=== PATIENT | male | born 1965 | race Caucasian/White ===

== ENCOUNTER 2017-06-09 01:24 | Inpatient (IN) | payer OTHER ==
[~2017-06-09] VITALS: Ht 185.4 cm; Wt 140.5 kg
[~2017-06-09 01:24] MED LIST: ALFU10TA2 PO; CLON0.5T PO; DICY1TAB26 PO; LORTA5 PO; PAXI20TA26 PO; PRAV80 PO; PROBCAP4 PO; PROS5TAB2 PO; PROT40TA PO; SM F10002 PO; TAB-TAB PO; TRIBTAB9 PO
[2017-06-09 01:31] VITALS: BP 120/69; PULSE 83; RESP 17; TEMP 98.2; O2SAT 97
[2017-06-09] MEDS ORDERED: CLON0.5T PO (01:42)
[2017-06-09] MEDS ORDERED: BP MED PO (01:42)
[2017-06-09] MEDS ORDERED: SACC1CAP3 PO (01:42)
[2017-06-09] MEDS ORDERED: PRAV80TA2 PO (01:42)
[2017-06-09] MEDS ORDERED: PROS5TAB PO (01:42)
--- NOTE | 2017-06-09 02:09 | PD ---
HPI Chief Complaint: Abdominal Pain Time Seen by Provider: 01:29 Travel History International Travel<30 days: No Contact w/Intl Traveler<30days: No Traveled to known affect area: No History of Present Illness HPI The patient is a 51 year old male who presents to the [facility] emergency department with a history of abdominal pain that began this morning. He has been in bed for 1 and 1/2 days reportedly related to an upper respiratory infection with cough and congestion. He reports that as he lives at home alone he has not been eating or drinking due to being in bed. He reports that he has a history of bowel obstruction and previously has developed bowel obstructions when he has been dehydrated. He has had dry heaving. He denies any diarrhea. His last BM was 3 days ago. He normally moves his bowels daily. He denies having any blood in his stool or black or tarry stools. The patient reports having history of an appendectomy and a partial bowel resection related to complications of his appendectomy. He reports that he developed a bowel obstruction with adhesion lysis in the past. The patient also reports having history of difficulty urinating and enlarged prostate that is followed by his urologist. On review of systems otherwise, the patient denies having any known fevers, neck pain, chest pain, shortness of breath, or neurologic symptoms. Jennifer-Urologist [facility] Past Medical History Narrative Medical The patient's past medical history is significant for BPH, UTI, HTN, hyperlipidemia, bowel obstructions, anxiety or depression, sleep apnea, obesity , acid reflux PCP: Dr. Meryl Wright. Arthritis: Yes (NECK, L SHOULDER ) Anxiety: Yes Depression: Yes Heart Rhythm Problems: No Cancer: No Cardiovascular Problems: Yes (HNT) High Cholesterol: Yes Chest Pain: No Congestive Heart Failure: No Diabetes: No Diminished Hearing: No Endocrine: No Gastrointestinal Disorders: Yes (pain and reflux with partial blockage with adhesions possible) Genitourinary: No Hepatitis: No Hiatal Hernia: No Hypertension: Yes Immune Disorder: No Musculoskeletal: Yes Neurologic: Yes Psychiatric: Yes Reproductive: No Respiratory: Yes Sleep Apnea: Yes (BIPAP) Thyroid Disease: No Past Surgical History Narrative Surgical The patient's past surgical history is significant for appendectomy with a partial bowel resection, lysis of adhesions, knee surgery, ankle sx. Abdominal Surgery: Yes (bowel resection, appendectomy, laproscopic removal of abd scar tissue) AICD: No Arteriovenous Shunt: No Cardiac Surgery: No Ear Surgery: No Endocrine Surgery: No Eye Surgery: No Genitourinary Surgery: No Insulin Pump: No Joint Replacement: No Oral Surgery: No Pacemaker: No Thoracic Surgery: No Other Surgery: Yes Social History Alcohol Use: No Tobacco Use: No Substance Use: No Allergies-Medications (Allergen,Severity, Reaction): Coded Allergies: sulfamethoxazole (Unverified Allergy, Severe, Rash, 06/09/17) trimethoprim (Unverified Allergy, Severe, Rash, 06/09/17) Reported Meds & Prescriptions Reported Meds & Active Scripts Active [place] 5-325 mg (Hydrocodone-Acetaminophen 5-325 mg) 1 Tab 1 Tab PO Q6H PRN Bentyl (Dicyclomine HCl) 20 Mg Tab 20 Mg PO TID 14 Days Reported [Bp Med] PO DAILY Clonazepam 0.5 Mg Tab 0.5 Mg PO BID Proscar (Finasteride) 5 Mg Tab 5 Mg PO DAILY Do not crush. Probiotic (Saccharomyces Boulardii) 250 Mg Cap 250 Mg PO BID Pravastatin 80 Mg Tab 80 Mg PO DAILY Clonazepam 0.5 Mg Tab 0.5 Mg PO BID PRN Protonix (Pantoprazole Sodium) 40 Mg Tab 40 Mg PO DAILY Pravastatin Sodium (Pravastatin Sod) 80 Mg Tab 1 Tab PO DAILY Proscar (Finasteride) 5 Mg Tab 5 Mg PO DAILY Probiotic Acidophilus (Acidophilus) Cap 1 Tab PO BID Sm Flax Seed Oil (Flaxseed) 1,000 Mg Cap 1,200 Mg PO DAILY Multivitamin (Multivitamins) 1 Tab Tab 1 Tab PO DAILY Alfuzosin Hcl Er (Alfuzosin HCl) 10 Mg Tab 10 Mg PO DAILY Tribenzor (Olmesartan Medoxomil-Amlodipin) 1 Tab Tab 40 Mg PO DAILY Paxil (Paroxetine HCl) 20 Mg Tab 20 Mg PO DAILY Review of Systems Except as stated in HPI: all other systems reviewed are Neg General / Constitutional: No: Fever Eyes: No: Visual changes HENT: No: Headaches Cardiovascular: No: Chest Pain or Discomfort Respiratory: No: Shortness of Breath Gastrointestinal: Positive: Nausea, Vomiting, Abdominal Pain, Constipation, Changes in Bowel Habits, Indigestion (reportedly cant afford his prescription for pantoprazole), No: Diarrhea, Hematemesis, Hematochezia, Loss of Appetite Genitourinary: No: Dysuria Musculoskeletal: No: Pain Skin: No Rash Neurologic: No: Weakness Psychiatric: No: Depression Endocrine: No: Polydipsia Hematologic/Lymphatic: No: Easy Bruising Physical Exam Narrative General: The patient is a well-developed well-nourished male, writhing around on the bed , intermittently retching, holding his abdomen. Head and Neck exam: Head is normocephalic atraumatic. Eyes: EOMI, pupils are equal round and reactive to light. Nose: Midline septum with pink mucous membranes Mouth: Dentition unremarkable. Moist mucus membranes. Posterior oropharynx is not erythematous. No tonsillar hypertrophy. Uvula midline. Airway patent. Neck: No palpable lymphadenopathy. No nuchal rigidity. No thyromegaly. Cardiovascular: Regular rate and rhythm without murmurs, gallops, or rubs. Lungs: Clear to auscultation bilaterally. No wheezes, rhonchi, or rales. Abdomen: Soft, with tenderness on palpation along the area just above the umbilicus, no other tenderness on palpation of the other quadrants of the abdomen, decreased bowel sounds are audible. No guarding, rebound, or rigidity. No tenderness on palpation of McBurney's point. Negative Rosa's sign. Extremities: No clubbing, cyanosis, or edema. 2+ pulses in all 4 extremities. No calf tenderness on palpation. Back: No spinous process tenderness to palpation. No costovertebral angle tenderness to palpation. Neurologic Exam: Grossly nonfocal. Skin Exam: No rash noted. Intact skin that is warm and dry. Data Data Last Documented VS Vital Signs Date Time Temp Pulse Resp B/P (MAP) Pulse Ox O2 Delivery O2 Flow Rate FiO2 06/09/17 01:31 98.2 83 17 120/69 (86) 97 Orders Orders Electrocardiogram (06/09/17 01:54) Complete Blood Count With Diff (06/09/17 01:54) Comprehensive Metabolic Panel (06/09/17 01:54) Creatine Kinase (Cpk) (06/09/17 01:54) Ckmb (Isoenzyme) Profile (06/09/17 01:54) Troponin I (06/09/17 01:54) B-Type Natriuretic Peptide (06/09/17 01:54) Prothrombin Time / Inr (Pt) (06/09/17 01:54) Act Partial Throm Time (Ptt) (06/09/17 01:54) C-Reactive Protein (Crp) (06/09/17 01:54) Lipase (06/09/17 01:54) Urinalysis - C+S If Indicated (06/09/17 01:54) Magnesium (Mg) (06/09/17 01:54) Chest, Single Ap (06/09/17 01:54) Ct Abd/Pel W Iv Contrast(Rout) (06/09/17 01:54) Iv Access Insert/Monitor (06/09/17 01:54) Ecg Monitoring (06/09/17 01:54) Oximetry (06/09/17 01:54) Sodium Chlor 0.9% 1000 Ml Inj (Ns 1000 M (06/09/17 02:15) Hydromorphone Pf Inj (Dilaudid Pf Inj) (06/09/17 02:15) Ondansetron Inj (Zofran Inj) (06/09/17 02:15) Iohexol 350 Inj (Omnipaque 350 Inj) (06/09/17 02:54) Admit Order (Ed Use Only) (06/09/17 03:44) Labs Laboratory Tests Test 06/09/17 02:00 06/09/17 03:45 White Blood Count 11.0 TH/MM3 Red Blood Count 5.44 MIL/MM3 Hemoglobin 16.9 GM/DL Hematocrit 48.5 % Mean Corpuscular Volume 89.2 FL Mean Corpuscular Hemoglobin 31.2 PG Mean Corpuscular Hemoglobin Concent 34.9 % Red Cell Distribution Width 14.2 % Platelet Count 388 TH/MM3 Mean Platelet Volume 7.2 FL Neutrophils (%) (Auto) 75.7 % Lymphocytes (%) (Auto) 16.0 % Monocytes (%) (Auto) 6.6 % Eosinophils (%) (Auto) 1.4 % Basophils (%) (Auto) 0.3 % Neutrophils # (Auto) 8.3 TH/MM3 Lymphocytes # (Auto) 1.8 TH/MM3 Monocytes # (Auto) 0.7 TH/MM3 Eosinophils # (Auto) 0.2 TH/MM3 Basophils # (Auto) 0.0 TH/MM3 CBC Comment DIFF FINAL Differential Comment Prothrombin Time 10.0 SEC Prothromb Time International Ratio 1.0 RATIO Activated Partial Thromboplast Time 25.9 SEC Blood Urea Nitrogen 14 MG/DL Creatinine 1.03 MG/DL Random Glucose 104 MG/DL Total Protein 9.3 GM/DL Albumin 4.3 GM/DL Calcium Level 9.6 MG/DL Magnesium Level 2.1 MG/DL Alkaline Phosphatase 93 U/L Aspartate Amino Transf (AST/SGOT) 28 U/L Alanine Aminotransferase (ALT/SGPT) 38 U/L Total Bilirubin 0.6 MG/DL Sodium Level 135 MEQ/L Potassium Level 3.6 MEQ/L Chloride Level 96 MEQ/L Carbon Dioxide Level 30.0 MEQ/L Anion Gap 9 MEQ/L Estimat Glomerular Filtration Rate 76 ML/MIN Total Creatine Kinase 89 U/L Troponin I LESS THAN 0.02 NG/ML C-Reactive Protein 1.01 MG/DL B-Type Natriuretic Peptide LESS THAN 2 PG/ML Lipase 89 U/L Urine Color YELLOW Urine Turbidity CLEAR Urine pH 7.5 Urine Specific [place] GREATER THAN 1.050 Urine Protein 30 mg/dL Urine Glucose (UA) NEG mg/dL Urine Ketones NEG mg/dL Urine Occult Blood NEG Urine Nitrite NEG Urine Bilirubin NEG Urine Urobilinogen LESS THAN 2.0 MG/DL Urine Leukocyte Esterase NEG Urine RBC 3 /hpf Urine WBC 1 /hpf Urine Squamous Epithelial Cells <1 /hpf Urine Mucus FEW /lpf Microscopic Urinalysis Comment CULT NOT INDICATED MDM Medical Decision Making Medical Screen Exam Complete: Yes Emergency Medical Condition: Yes Medical Record Reviewed: Yes Interpretation(s) Last Impressions Chest X-Ray 06/09/17153 Signed Impressions: Service Date/Time: Friday, June 09, 2017 02:26 - CONCLUSION: Left basilar density likely related to atelectasis or scarring. Pavel Estevez MD Abdomen/Pelvis CT 06/09/17153 Signed Impressions: Service Date/Time: Friday, June 09, 2017 02:56 - CONCLUSION: Abnormal dilated small bowel present with decompressed small bowel seen distally and the findings are concerning for a small bowel obstruction. Pavel Estevez MD Differential Diagnosis Recurrent bowel obstruction, versus prostatitis, versus colitis, versus diverticulitis Narrative Course During the course of the patient's emergency department visit, the patient's history, examination, and differential diagnosis were reviewed with the patient. The patient was placed on a program services assistant with oximetry and frequent blood pressure monitoring. The patient had IV access obtained and blood work sent for analysis. A CT scan of the abdomen and pelvis was ordered. An EKG was done on arrival. The patient's EKG reveals sinus rhythm heart rate of 82, QRS duration is 103 ms, QTC 433 ms. Incomplete right bundle branch block is noted. No acute ST segment elevation. The patient was initially provided normal saline IV fluids, hydromorphone 1 mg IV, Zofran 4 mg IV The patient's laboratory studies were reviewed and remarkable for White count of 11, hemoglobin 16.9, platelets 388 with 75.7 neutrophils. CMP is remarkable for sodium of 135, chloride 96, GFR 76, cardiac enzymes within normal limits, C- reactive protein 1.01, BNP is less than 2, lipase 89. PT 10, PTT 25.9, urinalysis shows concentrated urine 30 protein otherwise unremarkable. The patient's chest x-ray showed no acute abnormality. A CT scan of the abdomen and pelvis that revealed evidence of recurrent small bowel obstruction. I discussed the patient's findings with him and also discussed placing an NG tube. At this time the patient reports that he would like to avoid having an NG tube placed again. The patient's results were discussed with the patient, including the plan of care. I explained that further testing and/ or monitoring is indicated based on the patient's history, examination, and/ or laboratory findings. Therefore, I recommended admission for additional evaluation. The patient expressed understanding and was agreeable with this plan. The patient was admitted to the hospital in stable condition and sent to a bed under the care of the [facility] service. Physician Communication Physician Communication The patient's case including history, pertinent physical examination findings, and laboratory studies were discussed with Dr. Ruiz. It was agreed that the patient would be admitted to the [facility] ([place], [place]) service. Diagnosis Primary Impression: Small bowel obstruction Admitting Information Admitting Physician Requests: Admit Lori James MD Jun 09, 2017 02:09
[2017-06-09 02:13] LABS: AUTOMATED NEUTROPHIL # 8.3 TH/MM3 (1.8-7.7); BASOPHIL % 0.3 % (0.0-2.0); EOSINOPHIL # 0.2 TH/MM3 (0-0.4); EOSINOPHIL % 1.4 % (0.0-4.0); HEMATOCRIT 48.5 % (39.0-51.0); HEMOGLOBIN 16.9 GM/DL (13.0-17.0); LYMPHOCYTE # 1.8 TH/MM3 (1.0-4.8); MEAN CELL VOLUME 89.2 FL (80.0-100.0); MEAN CORPUSCULAR HEMOGLOBIN 31.2 PG (27.0-34.0); MEAN CORPUSCULAR HGB CONC 34.9 % (32.0-36.0); MEAN PLATELET VOLUME 7.2 FL (7.0-11.0); MONO % 6.6 % (0.0-8.0); MONOCYTE # 0.7 TH/MM3 (0-0.9); NEUT % 75.7 % (16.0-70.0); PLATELET COUNT 388 TH/MM3 (150-450); RED BLOOD COUNT 5.44 MIL/MM3 (4.50-5.90); RED CELL DISTRIBUTION WIDTH 14.2 % (11.6-17.2)
[2017-06-09] MEDS ORDERED: ONDANSETRON HCL 4 MG/2 ML VIAL IV PUSH ONE (02:15)
[2017-06-09] MEDS ORDERED: SODIUM CHLOR 0.9% 1000 ML INJ 1,000 ML IV ONE (02:15)
[2017-06-09] MEDS ORDERED: HYDROmorphone HCL PF 2 MG/ML VIAL IV PUSH ONE (02:15)
[2017-06-09 02:27] LABS: ALBUMIN 4.3 GM/DL (3.4-5.0); AST (GOT) 28 U/L (15-37); BLOOD UREA NITROGEN 14 MG/DL (7-18); CALCIUM 9.6 MG/DL (8.5-10.1); CHLORIDE 96 MEQ/L (98-107); CREATININE 1.03 MG/DL (0.60-1.30); GLOMERULAR FILTRATION RATE 76 ML/MIN (>89); GLUCOSE,RANDOM 104 MG/DL (74-106); MAGNESIUM 2.1 MG/DL (1.5-2.5); SODIUM (NA) 135 MEQ/L (136-145)
[2017-06-09 02:30] LABS: ALKALINE PHOSPHATASE 93 U/L (45-117); ALT (GPT) 38 U/L (12-78); C-REACTIVE PROTEIN 1.01 MG/DL (0.00-0.30); TOTAL BILIRUBIN ADULT 0.6 MG/DL (0.2-1.0); TOTAL PROTEIN 9.3 GM/DL (6.4-8.2); TROPONIN I LESS THAN 0.02 NG/ML (0.02-0.05)
--- NOTE | 2017-06-09 02:31 | RADRPT ---
EXAM DATE/TIME: 06/09/2017 02:26 [facility] COMPARISON: CHEST PA & LAT, January 17, 2016, 8:29. INDICATIONS : Chest pains. Lower chest. MEDICAL HISTORY : None. SURGICAL HISTORY : None. ENCOUNTER: Initial ACUITY: 1 day PAIN SCORE: 0/10 LOCATION: Bilateral chest FINDINGS: Cardiomegaly. Slight elevation of left hemidiaphragm with density at the left lateral costophrenic an gle likely related to scarring or atelectasis. The lungs are otherwise clear. Degenerative changes of the spine are noted. CONCLUSION: Left basilar density likely related to atelectasis or scarring. Pavel Estevez MD on June 09, 2017 at 2:28 Board Certified Radiologist. This report was verified electronically.
[2017-06-09] MEDS ORDERED: IOHEXOL 350 MG/ML 10 ML VIAL (for RAD DIAG) IVCONTRAST ONE (02:54)
--- NOTE | 2017-06-09 03:17 | RADRPT ---
EXAM DATE/TIME: 06/09/2017 02:56 [facility] COMPARISON: CT ABDOMEN & PELVIS W CONTRAST, January 17, 2016, 8:33. INDICATIONS : Abdomen pain and distention. IV CONTRAST: 100 cc Omnipaque 350 (iohexol) IV ORAL CONTRAST: No oral contrast ingested. RADIATION DOSE: 33.72 CTDIvol (mGy) ; Patient body habitus MEDICAL HISTORY : Hypertension. Obstruction. SURGICAL HISTORY : Appendectomy. Bowel resection. ENCOUNTER: Initial ACUITY: 1 day PAIN SCALE: 6/10 LOCATION: Bilateral abdomen TECHNIQUE: Volumetric scanning of the abdomen and pelvis was performed. Using automated exposure control and ad justment of the mA and/or kV according to patient size, radiation dose was kept as low as reasonably achievable to obtain optimal diagnostic quality images. DICOM format image data is available electro nically for review and comparison. FINDINGS: There is mild hepatic steatosis. Gallbladder spleen, pancreas, adrenals, kidneys are unremarkable. Ur inary bladder and prostate unremarkable. Large bowel unremarkable. The patient is status post appende ctomy. There numerous dilated air and fluid-filled loops of small bowel present up to 3.6 cm. Distal small bowel loops are decompressed, and there is a transition point in the left lower quadrant on axi al image 74. The findings are concerning for small bowel obstruction. No free fluid or free air. Dege nerative changes of the spine are seen. Lung bases are clear. CONCLUSION: Abnormal dilated small bowel present with decompressed small bowel seen distally and the findings are concerning for a small bowel obstruction. Pavel Estevez MD on June 09, 2017 at 3:10 Board Certified Radiologist. This report was verified electronically.
[2017-06-09] MEDS ORDERED: MORPHINE SULFATE 2 MG/ML INJ IV PUSH PRN (03:45)
[2017-06-09] MEDS ORDERED: NALOXONE HCL 0.4 MG/ML AMP IV PUSH PRN (03:45)
[2017-06-09] MEDS ORDERED: SODIUM CHLORIDE 0.9% FLUSH 10 ML FLUSH IV FLUSH PRN (03:45)
[2017-06-09] MEDS: SODIUM CHLOR 0.9% 1000 ML INJ 1,000 ML IV SCH ×4 (04:01→22:34)
[2017-06-09 04:03] LABS: BILIRUBIN, URINE NEG (NEG); BLOOD, URINE NEG (NEG); GLUCOSE,URINE NEG (NEG); KETONE, URINE NEG (NEG); MUCUS URINE FEW /lpf (OCC); NITRITE,URINE NEG (NEG); PH, URINE 7.5 (5.0-8.5); SQUAMOUS EPITHELIAL CELL URINE <1 /hpf (0-5); URINE COLOR YELLOW (YELLW/STRAW); URINE LEUKOCYTE ESTERASE NEG (NEG)
--- NOTE | 2017-06-09 04:59 | HHI.HP ---
[facility] Meryl [facility]ord[facility] D.O. Admission Diagnosis Small bowel obstruction Diagnoses: Chief Complaint: nausea, vomiting, abdominal pain Travel History International Travel<30 Days: No Contact w/Intl Traveler <30 Da: No Traveled to Known Affected Are: No History of Present Illness Written by CICI Fox acting as scribe for [Sara] on 06/09/17 at 04: 48. 51 y/o male with a history of SBO, sleep apnea, bph, and hld presented to the ED with complaints of abdominal pain, nausea and vomiting. He states he has been feeling sick the past 2 days with abdominal pain, nausea and vomiting. His last BM was 3 days ago, today he took lactulose with no relief. He is refusing an NGT at this time. He denies any chest pain, sob, fever or chills. Review of Systems Except as stated in HPI: all other systems reviewed are Neg Past Family Social History Past Medical History Multiple Small bowel obstruction HTN Past Surgical History Bowel resection secondary to a ruptured appendix Lysis of adhesions Reported Medications Reported Meds & Active Scripts Active [place] 5-325 mg (Hydrocodone-Acetaminophen 5-325 mg) 1 Tab 1 Tab PO Q6H PRN Bentyl (Dicyclomine HCl) 20 Mg Tab 20 Mg PO TID 14 Days Reported [Bp Med] PO DAILY Clonazepam 0.5 Mg Tab 0.5 Mg PO BID Proscar (Finasteride) 5 Mg Tab 5 Mg PO DAILY Do not crush. Probiotic (Saccharomyces Boulardii) 250 Mg Cap 250 Mg PO BID Pravastatin 80 Mg Tab 80 Mg PO DAILY Clonazepam 0.5 Mg Tab 0.5 Mg PO BID PRN Protonix (Pantoprazole Sodium) 40 Mg Tab 40 Mg PO DAILY Pravastatin Sodium (Pravastatin Sod) 80 Mg Tab 1 Tab PO DAILY Proscar (Finasteride) 5 Mg Tab 5 Mg PO DAILY Probiotic Acidophilus (Acidophilus) Cap 1 Tab PO BID Sm Flax Seed Oil (Flaxseed) 1,000 Mg Cap 1,200 Mg PO DAILY Multivitamin (Multivitamins) 1 Tab Tab 1 Tab PO DAILY Alfuzosin Hcl Er (Alfuzosin HCl) 10 Mg Tab 10 Mg PO DAILY Tribenzor (Olmesartan Medoxomil-Amlodipin) 1 Tab Tab 40 Mg PO DAILY Paxil (Paroxetine HCl) 20 Mg Tab 20 Mg PO DAILY Allergies: Coded Allergies: sulfamethoxazole (Unverified Allergy, Severe, Rash, 06/09/17) trimethoprim (Unverified Allergy, Severe, Rash, 06/09/17) Active Ordered Medications Current Medications Medications (Trade) Dose Ordered Sig/Pepito Route Start Time Stop Time Status Last Admin Sodium Chloride 1,000 ml @ 100 mls/hr Q10H IV 06/09/17 03:45 06/09/17 04:01 (NS Flush) 2 ml UNSCH PRN IV FLUSH 06/09/17 03:45 (NS Flush) 2 ml BID IV FLUSH 06/09/17 09:00 (Zofran Inj) 4 mg Q6H PRN IVP 06/09/17 03:45 (Narcan Inj) 0.4 mg UNSCH PRN IV PUSH 06/09/17 03:45 (Morphine Inj) 2 mg Q3H PRN IV PUSH 06/09/17 03:45 Family History Dad: Rheumatic fever, [place] Social History Tobacco use: Denies Alcohol use: Denies Illicit drug use: Denies Physical Exam Vital Signs Vital Signs Date Time Temp Pulse Resp B/P (MAP) Pulse Ox O2 Delivery O2 Flow Rate FiO2 06/09/17 01:31 98.2 83 17 120/69 (86) 97 Physical Exam GENERAL: This is a well-nourished, obese patient, in no apparent distress. SKIN: No rashes, ecchymoses or lesions. Cool and dry. HEAD: Atraumatic. Normocephalic. EYES: Pupils equal round and reactive. Extraocular motions intact. No scleral icterus. No injection or drainage. ENT: Nose without bleeding, purulent drainage or septal hematoma. Airway patent. NECK: Trachea midline. No JVD or lymphadenopathy. CARDIOVASCULAR: Regular rate and rhythm without murmurs, gallops, or rubs. RESPIRATORY: Clear to auscultation. Breath sounds equal bilaterally. No wheezes , rales, or rhonchi. GASTROINTESTINAL: Abdomen soft, tender, nondistended. No hepato-splenomegaly, or palpable masses. No guarding. MUSCULOSKELETAL: Extremities without clubbing, cyanosis, or edema. No joint tenderness, effusion, or edema noted. No calf tenderness. NEUROLOGICAL: Awake and alert. Motor and sensory grossly within normal limits. Normal speech. Laboratory Laboratory Tests Test 06/09/17 02:00 06/09/17 03:45 White Blood Count 11.0 Red Blood Count 5.44 Hemoglobin 16.9 Hematocrit 48.5 Mean Corpuscular Volume 89.2 Mean Corpuscular Hemoglobin 31.2 Mean Corpuscular Hemoglobin Concent 34.9 Red Cell Distribution Width 14.2 Platelet Count 388 Mean Platelet Volume 7.2 Neutrophils (%) (Auto) 75.7 Lymphocytes (%) (Auto) 16.0 Monocytes (%) (Auto) 6.6 Eosinophils (%) (Auto) 1.4 Basophils (%) (Auto) 0.3 Neutrophils # (Auto) 8.3 Lymphocytes # (Auto) 1.8 Monocytes # (Auto) 0.7 Eosinophils # (Auto) 0.2 Basophils # (Auto) 0.0 CBC Comment DIFF FINAL Differential Comment Prothrombin Time 10.0 Prothromb Time International Ratio 1.0 Activated Partial Thromboplast Time 25.9 Blood Urea Nitrogen 14 Creatinine 1.03 Random Glucose 104 Total Protein 9.3 Albumin 4.3 Calcium Level 9.6 Magnesium Level 2.1 Alkaline Phosphatase 93 Aspartate Amino Transf (AST/SGOT) 28 Alanine Aminotransferase (ALT/SGPT) 38 Total Bilirubin 0.6 Sodium Level 135 Potassium Level 3.6 Chloride Level 96 Carbon Dioxide Level 30.0 Anion Gap 9 Estimat Glomerular Filtration Rate 76 Total Creatine Kinase 89 Troponin I LESS THAN 0.02 C-Reactive Protein 1.01 B-Type Natriuretic Peptide LESS THAN 2 Lipase 89 Urine Color YELLOW Urine Turbidity CLEAR Urine pH 7.5 Urine Specific [place] GREATER THAN 1.050 Urine Protein 30 Urine Glucose (UA) NEG Urine Ketones NEG Urine Occult Blood NEG Urine Nitrite NEG Urine Bilirubin NEG Urine Urobilinogen LESS THAN 2.0 Urine Leukocyte Esterase NEG Urine RBC 3 Urine WBC 1 Urine Squamous Epithelial Cells <1 Urine Mucus FEW Microscopic Urinalysis Comment CULT NOT INDICATED Result Diagram: 06/09/17 02006/09/17 020 Imaging Last Impressions Chest X-Ray 06/09/17 0154 Signed Impressions: Service Date/Time: Friday, June 09, 2017 02:26 - CONCLUSION: Left basilar density likely related to atelectasis or scarring. Pavel Estevez MD Abdomen/Pelvis CT 06/09/17 0154 Signed Impressions: Service Date/Time: Friday, June 09, 2017 02:56 - CONCLUSION: Abnormal dilated small bowel present with decompressed small bowel seen distally and the findings are concerning for a small bowel obstruction. MD Vitor Lara VTE Risk Assessment Caprini VTE Risk Assessment: No/Low Risk (score <= 1) Caprini Risk Assessment Model Point Value = 1 Point Value = 2 Point Value = 3 Point Value = 5 Age 41-60 Minor surgery BMI > 25 kg/m2 Swollen legs Varicose veins or History of unexplained or recurrent spontaneous Oral contraceptives or hormone replacement Sepsis (< 1 month) Serious lung disease, including pneumonia (< 1 month) Abnormal pulmonary function Acute myocardial infarction Congestive heart failure (< 1 month) History of inflammatory bowel disease Medical patient at bed rest Age 61-74 Arthroscopic surgery Major open surgery (> 45 min) Laparoscopic surgery (> 45 min) Malignancy Confined to bed (> 72 hours) Immobilizing plaster cast Central venous access Age >= 75 History of VTE Family history of VTE Factor V Leiden Prothrombin [id number] Lupus anticoagulant Anticardiolipin antibodies Elevated serum homocysteine Heparin-induced thrombocytopenia Other congenital or acquired thrombophilia Stroke (< 1 month) Elective arthroplasty Hip, pelvis, or leg fracture Acute spinal cord injury (< 1 month) Prophylaxis Regimen Total Risk Factor Score Risk Level Prophylaxis Regimen 0-1 Low Early ambulation 2 Moderate Order ONE of the following: *Sequential Compression Device (SCD) *Heparin 5000 units SQ BID 3-4 Higher Order ONE of the following medications: *Heparin 5000 units SQ TID *Enoxaparin/Lovenox 40 mg SQ daily (WT < 150 kg, CrCl > 30 mL/min) *Enoxaparin/Lovenox 30 mg SQ daily (WT < 150 kg, CrCl > 10-29 mL/min) *Enoxaparin/Lovenox 30 mg SQ BID (WT < 150 kg, CrCl > 30 mL/min) AND/OR *Sequential Compression Device (SCD) 5 or more Highest Order ONE of the following medications: *Heparin 5000 units SQ TID (Preferred with Epidurals) *Enoxaparin/Lovenox 40 mg SQ daily (WT < 150 kg, CrCl > 30 mL/min) *Enoxaparin/Lovenox 30 mg SQ daily (WT < 150 kg, CrCl > 10-29 mL/min) *Enoxaparin/Lovenox 30 mg SQ BID (WT < 150 kg, CrCl > 30 mL/min) AND *Sequential Compression Device (SCD) Assessment and Plan Problem List: (1) Small bowel obstruction ICD Code: K56.609 - Unspecified intestinal obstruction, unspecified as to partial versus complete obstruction Assessment and Plan 51 y/o male with a history of SBO, sleep apnea, bph, and hld presented to the ED with complaints of abdominal pain, nausea and vomiting. Small bowel obstruction abdominal CT reviewed and shows an abnormal dilated small bowel present with decompressed small bowel seen distally. -IVF -NGT if patient continues to Vomit -Antiemetics as needed -NPO -Consult general surgery for recommendations -Dilaudid IV for pain management Chronic conditions bph, hld, anxiety: resume home medications when no longer npo DVT prophylaxis: SCDs Discussed Condition With Patient, RN and ED physician Physician Certification 2 Midnight Certification Type: Admission for Inpatient Services Order for Inpatient Services The services are ordered in accordance with Medicare regulations or non- Medicare payer requirements, as applicable. In the case of services not specified as inpatient-only, they are appropriately provided as inpatient services in accordance with the 2-midnight benchmark. Estimated LOS (days): 2 days is the estimated time the patient will need to remain in the hospital, assuming treatment plan goals are met and no additional complications. Post-Hospital Plan: Home Micaela Weber Jun 09, 2017 04:59
[2017-06-09] MEDS: HYDROmorphone HCL PF 1 MG/ML VIAL IV PUSH PRN ×2 (05:22→09:23)
[2017-06-09] MEDS: ONDANSETRON HCL 4 MG/2 ML VIAL IVP PRN ×3 (06:53→20:47)
[2017-06-09 08:22] VITALS: BP 136/69; PULSE 68; RESP 22; TEMP 98.2; O2SAT 97
[2017-06-09 08:23] VITALS: O2SAT 98
[2017-06-09] MEDS ORDERED: NON-FORMULARY DRUG (Saccharomyces Boulardii (Probiotic) 250 MG) PO SCH (09:00)
[2017-06-09] MEDS: PRAVASTATIN SOD 80 MG TAB PO SCH (09:00)
[2017-06-09] MEDS: clonazePAM 0.5 MG TAB PO SCH ×2 (09:00→20:47)
[2017-06-09] MEDS: FINASTERIDE 5 MG TAB PO SCH (09:00)
[2017-06-09] MEDS: SODIUM CHLORIDE 0.9% FLUSH 10 ML FLUSH IV FLUSH SCH ×2 (09:00→20:54)
--- NOTE | 2017-06-09 10:23 | PD.CONS ---
cc: Johnny Moncada MD [facility] Service General Surgery Consult Requested By Micaela BOLANOS Reason for Consult Small bowel obstruction Primary Care Physician Meryl Giordano D.O. History of Present Illness This is a 51-year-old male with a past medical history of a obstructive sleep apnea, BPH, dyslipidemia and hypertension. The patient reports he had about 2 days of generalized abdominal pain that increased yesterday. He does report some nausea but no vomiting at home. On arrival to the Emergency Department he did have some emesis. He reports his last bowel movement was 3 days ago but is passing gas. A CT abdomen and pelvis was obtained which shows a abnormal dilated small bowel that is concerning for small bowel obstruction. His labs are essentially unremarkable at this time. A General Surgery consultation has been requested. Review of Systems Constitutional: COMPLAINS OF: Fatigue, Change in appetite, DENIES: Chills Endocrine: DENIES: Polydipsia, Polyuria, Polyphagia Eyes: DENIES: Diplopia, Eye inflammation Ears, nose, mouth, throat: DENIES: Hearing loss Respiratory: DENIES: Apneas, Cough Cardiovascular: DENIES: Chest pain, Dyspnea on Exertion Gastrointestinal: COMPLAINS OF: Abdominal pain, Nausea, Vomiting Genitourinary: DENIES: Urgency Musculoskeletal: DENIES: Joint pain Integumentary: DENIES: Abnormal pigmentation Hematologic/lymphatic: DENIES: Bruising Immunologic/allergic: DENIES: Eczema Neurologic: DENIES: Abnormal gait, Headache Psychiatric: DENIES: Confusion, Mood changes, Depression Past Family Social History Past Medical History Obstructive sleep apnea on BiPAP BPH Dyslipidemia Hypertension Anxiety/PTSD Past Surgical History Open appendectomy secondary to ruptured appendicitis [place] [address] Laguerre Diagnostic laparoscopy & Lysis of adhesions by Dr. Moncada in 2014 Reported Medications Bentyl Alfuzosin Pravastatin Tribenzor [place] Clonazepam Paxil Protonix Probiotic Multivitamin Proscar Proscar Allergies: Coded Allergies: sulfamethoxazole (Unverified Allergy, Severe, Rash, 06/09/17) trimethoprim (Unverified Allergy, Severe, Rash, 06/09/17) Active Ordered Medications Current Medications Medications (Trade) Dose Ordered Sig/Pepito Route Start Time Stop Time Status Last Admin Sodium Chloride 1,000 ml @ 100 mls/hr Q10H IV 06/09/17 03:45 06/09/17 04:01 (NS Flush) 2 ml UNSCH PRN IV FLUSH 06/09/17 03:45 (NS Flush) 2 ml BID IV FLUSH 06/09/17 09:00 (Zofran Inj) 4 mg Q6H PRN IVP 06/09/17 03:45 06/09/17 06:53 (Narcan Inj) 0.4 mg UNSCH PRN IV PUSH 06/09/17 03:45 (Dilaudid Pf Inj) 1 mg Q4H PRN IV PUSH 06/09/17 05:00 06/09/17 09:23 (KlonoPIN) 0.5 mg BID PO 06/09/17 09:00 (Proscar) 5 mg DAILY PO 06/09/17 09:00 (Pravachol) 80 mg DAILY PO 06/09/17 09:00 Family History Noncontributory Social History Denies tobacco use Denies EtOH use Denies illicit drug use Lives with ; currently unemployed. Physical Exam Vital Signs Vital Signs Date Time Temp Pulse Resp B/P (MAP) Pulse Ox O2 Delivery O2 Flow Rate FiO2 06/09/17 09:17 16 06/09/17 08:23 98 Room Air 06/09/17 08:22 98.2 68 22 136/69 (91) 97 Room Air 06/09/17 01:31 98.2 83 17 120/69 (86) 97 Physical Exam GENERAL: A 51-year-old male resting in bed in moderate acute distress from pain. SKIN: Warm and dry. HEAD: Atraumatic. Normocephalic. EYES: Pupils equal and round. No scleral icterus. No injection or drainage. ENT: No nasal bleeding or discharge. Mucous membranes pink and moist. NECK: Trachea midline. CARDIOVASCULAR: Regular rate and rhythm. RESPIRATORY: No accessory muscle use. Clear to auscultation. Breath sounds equal bilaterally. GASTROINTESTINAL: Abdomen distended; tender throughout to palpation. Hypoactive bowel sounds. RLQ incision---well healed. Obese abdomen. MUSCULOSKELETAL: Extremities without clubbing, cyanosis, or edema. No obvious deformities. NEUROLOGICAL: Awake and alert. No obvious cranial nerve deficits. Motor grossly within normal limits. Five out of 5 muscle strength in the arms and legs. Normal speech. PSYCHIATRIC: Appropriate mood and affect; insight and judgment normal. Laboratory Laboratory Tests Test 06/09/17 02:00 06/09/17 03:45 White Blood Count 11.0 Red Blood Count 5.44 Hemoglobin 16.9 Hematocrit 48.5 Mean Corpuscular Volume 89.2 Mean Corpuscular Hemoglobin 31.2 Mean Corpuscular Hemoglobin Concent 34.9 Red Cell Distribution Width 14.2 Platelet Count 388 Mean Platelet Volume 7.2 Neutrophils (%) (Auto) 75.7 Lymphocytes (%) (Auto) 16.0 Monocytes (%) (Auto) 6.6 Eosinophils (%) (Auto) 1.4 Basophils (%) (Auto) 0.3 Neutrophils # (Auto) 8.3 Lymphocytes # (Auto) 1.8 Monocytes # (Auto) 0.7 Eosinophils # (Auto) 0.2 Basophils # (Auto) 0.0 CBC Comment DIFF FINAL Differential Comment Prothrombin Time 10.0 Prothromb Time International Ratio 1.0 Activated Partial Thromboplast Time 25.9 Blood Urea Nitrogen 14 Creatinine 1.03 Random Glucose 104 Total Protein 9.3 Albumin 4.3 Calcium Level 9.6 Magnesium Level 2.1 Alkaline Phosphatase 93 Aspartate Amino Transf (AST/SGOT) 28 Alanine Aminotransferase (ALT/SGPT) 38 Total Bilirubin 0.6 Sodium Level 135 Potassium Level 3.6 Chloride Level 96 Carbon Dioxide Level 30.0 Anion Gap 9 Estimat Glomerular Filtration Rate 76 Total Creatine Kinase 89 Troponin I LESS THAN 0.02 C-Reactive Protein 1.01 B-Type Natriuretic Peptide LESS THAN 2 Lipase 89 Urine Color YELLOW Urine Turbidity CLEAR Urine pH 7.5 Urine Specific [place] GREATER THAN 1.050 Urine Protein 30 Urine Glucose (UA) NEG Urine Ketones NEG Urine Occult Blood NEG Urine Nitrite NEG Urine Bilirubin NEG Urine Urobilinogen LESS THAN 2.0 Urine Leukocyte Esterase NEG Urine RBC 3 Urine WBC 1 Urine Squamous Epithelial Cells <1 Urine Mucus FEW Microscopic Urinalysis Comment CULT NOT INDICATED Result Diagram: 06/09/1719906/09/17 020 Imaging Last 48 hours Impressions Chest X-Ray 06/09/17 0154 Signed Impressions: Service Date/Time: Friday, June 09, 2017 02:26 - CONCLUSION: Left basilar density likely related to atelectasis or scarring. Pavel Estevez MD Abdomen/Pelvis CT 06/09/17 0154 Signed Impressions: Service Date/Time: Friday, June 09, 2017 02:56 - CONCLUSION: Abnormal dilated small bowel present with decompressed small bowel seen distally and the findings are concerning for a small bowel obstruction. Pavel Estevez MD Assessment and Plan Assessment and Plan 51 year old male with abdominal pain; nausea; vomiting; recurrent SBO -Recommend NGT to LIWS ---patient agrees -NPO -IV hydration -Pain control -Zofran PRN -KUB in AM -Thank you for this consult; We will continue to follow Discussed Condition With Dr. Coral BOLANOS Mr. and Mrs. Angel Don Attending Statement Please see my progress note from same date. The exam, history, and the medical decision-making described in the above note were completed with the assistance of the mid-level provider. I reviewed and agree with the findings presented. I attest that I had a [id number] encounter with the patient on the same day, and personally performed and documented my assessment and findings in the medical record. Alessandra Potts Jun 09, 2017 10:23 Johnny Moncada MD Jun 10, 2017 11:23
[2017-06-09 11:00] VITALS: PULSE 95
[2017-06-09] MEDS: HYDROmorphone HCL PF 2 MG/ML VIAL IV PRN ×3 (14:29→22:31)
--- NOTE | 2017-06-09 15:53 | HHI.PR ---
Subjective Subjective Notes feels better. Passed some gas, liquid. Had recent URI, got dehydrated, then abdominal pain, distention. Objective Vitals/I&O Vital Signs Date Time Temp Pulse Resp B/P (MAP) Pulse Ox O2 Delivery O2 Flow Rate FiO2 06/09/17 11:00 95 06/09/17 09:17 16 06/09/17 08:23 98 Room Air 06/09/17 08:22 98.2 Labs Laboratory Tests Test 06/09/17 02:00 06/09/17 03:45 White Blood Count 11.0 Red Blood Count 5.44 Hemoglobin 16.9 Hematocrit 48.5 Mean Corpuscular Volume 89.2 Mean Corpuscular Hemoglobin 31.2 Mean Corpuscular Hemoglobin Concent 34.9 Red Cell Distribution Width 14.2 Platelet Count 388 Mean Platelet Volume 7.2 Neutrophils (%) (Auto) 75.7 Lymphocytes (%) (Auto) 16.0 Monocytes (%) (Auto) 6.6 Eosinophils (%) (Auto) 1.4 Basophils (%) (Auto) 0.3 Neutrophils # (Auto) 8.3 Lymphocytes # (Auto) 1.8 Monocytes # (Auto) 0.7 Eosinophils # (Auto) 0.2 Basophils # (Auto) 0.0 CBC Comment DIFF FINAL Differential Comment Prothrombin Time 10.0 Prothromb Time International Ratio 1.0 Activated Partial Thromboplast Time 25.9 Blood Urea Nitrogen 14 Creatinine 1.03 Random Glucose 104 Total Protein 9.3 Albumin 4.3 Calcium Level 9.6 Magnesium Level 2.1 Alkaline Phosphatase 93 Aspartate Amino Transf (AST/SGOT) 28 Alanine Aminotransferase (ALT/SGPT) 38 Total Bilirubin 0.6 Sodium Level 135 Potassium Level 3.6 Chloride Level 96 Carbon Dioxide Level 30.0 Anion Gap 9 Estimat Glomerular Filtration Rate 76 Total Creatine Kinase 89 Troponin I LESS THAN 0.02 C-Reactive Protein 1.01 B-Type Natriuretic Peptide LESS THAN 2 Lipase 89 Urine Color YELLOW Urine Turbidity CLEAR Urine pH 7.5 Urine Specific [place] GREATER THAN 1.050 Urine Protein 30 Urine Glucose (UA) NEG Urine Ketones NEG Urine Occult Blood NEG Urine Nitrite NEG Urine Bilirubin NEG Urine Urobilinogen LESS THAN 2.0 Urine Leukocyte Esterase NEG Urine RBC 3 Urine WBC 1 Urine Squamous Epithelial Cells <1 Urine Mucus FEW Microscopic Urinalysis Comment CULT NOT INDICATED Radiology Last 48 hours Impressions Chest X-Ray 06/09/17153 Signed Impressions: Service Date/Time: Friday, June 09, 2017 02:26 - CONCLUSION: Left basilar density likely related to atelectasis or scarring. Pavel Estevez MD Abdomen/Pelvis CT 06/09/17153 Signed Impressions: Service Date/Time: Friday, June 09, 2017 02:56 - CONCLUSION: Abnormal dilated small bowel present with decompressed small bowel seen distally and the findings are concerning for a small bowel obstruction. Pavel Estevez MD Abdomen: Other (mildly distended, protuberant. Non tender. No hernias. Scars well healed. Few Bss.) Extremities: No edema, Perfused A/P Assessment and Plan Recent URI, dehydration, likely ileus. Doubt SBO. aruna Soriano. D/W patient and Dr Galvin. Johnny Moncada MD Jun 09, 2017 15:53
[2017-06-09 16:00] VITALS: BP 125/63; PULSE 86; RESP 18; TEMP 97.4; O2SAT 96
--- NOTE | 2017-06-09 16:00 | HHI.PR ---
Objective Vitals Vital Signs Date Time Temp Pulse Resp B/P (MAP) Pulse Ox O2 Delivery O2 Flow Rate FiO2 06/09/17 11:00 95 06/09/17 09:17 16 06/09/17 08:23 98 Room Air 06/09/17 08:22 98.2 68 22 136/69 (91) 97 Room Air 06/09/17 01:31 98.2 83 17 120/69 (86) 97 I/O 06/08/17 06/08/17 06/08/17 06/09/17 06/09/17 06/09/17 06:59 14:59 22:59 06:59 14:59 22:59 Intake Total 1000 ml 0 ml Balance 1000 ml 0 ml Intake IV Total 1000 ml 0 ml Result Diagram: 06/09/17 0200 06/09/17 0200 A/P Problem List: (1) Small bowel obstruction ICD Code: K56.609 - Unspecified intestinal obstruction, unspecified as to partial versus complete obstruction Assessment and Plan Mr. Ortiz was seen by me twice today, he presented early this morning with a recurrence of a small bowel obstruction (see H&P) - Exam in the ER around 8am revealed no bowel sounds - Exam in his room around 2pm showed hypoactive bowel sounds - Clear liquids added by surgery, will follow progress of bowel awakening, looking good so far Freddie Galvin MD Jun 09, 2017 15:59
[2017-06-09 20:00] VITALS: BP 130/66; PULSE 67; RESP 18; TEMP 98.5; O2SAT 94
--- NOTE | 2017-06-09 21:20 | EKG ---
Date Performed: 06/09/2017 Time Performed: 02:17:43 PTAGE: 51 years EKG: Sinus rhythm INCOMPLETE RIGHT BUNDLE BRANCH BLOCK NONSPECIFIC ST & T-WAVE ABNORMALITY BORDERLINE ECG PREVIOUS TRACING : 01/17/2016 07.13 Since the prior tracing, there has been no significant henao DOCTOR: Alberto Brown Interpretating Date/Time 06/09/2017 21:18:29
[2017-06-10] VITALS (8 sets, daily range): BP systolic 124–155; BP diastolic 67–79; PULSE 71–118; RESP 18–20; TEMP 96.2–99.6; O2SAT 92–97
[2017-06-10] MEDS: HYDROmorphone HCL PF 2 MG/ML VIAL IV PRN ×5 (03:29→19:46)
[2017-06-10] MEDS: FINASTERIDE 5 MG TAB PO SCH (08:08)
[2017-06-10] MEDS: SODIUM CHLORIDE 0.9% FLUSH 10 ML FLUSH IV FLUSH SCH ×2 (08:08→19:43)
[2017-06-10] MEDS: PRAVASTATIN SOD 80 MG TAB PO SCH (08:08)
[2017-06-10] MEDS: clonazePAM 0.5 MG TAB PO SCH ×2 (08:08→19:42)
[2017-06-10 08:11] LABS: AUTOMATED NEUTROPHIL # 3.7 TH/MM3 (1.8-7.7); BASOPHIL % 0.2 % (0.0-2.0); EOSINOPHIL % 0.2 % (0.0-4.0); HEMATOCRIT 40.8 % (39.0-51.0); LYMPH % 12.8 % (9.0-44.0); LYMPHOCYTE # 0.6 TH/MM3 (1.0-4.8); MEAN CELL VOLUME 90.6 FL (80.0-100.0); MEAN CORPUSCULAR HGB CONC 34.2 % (32.0-36.0); MEAN PLATELET VOLUME 7.1 FL (7.0-11.0); MONO % 12.8 % (0.0-8.0); MONOCYTE # 0.6 TH/MM3 (0-0.9); PLATELET COUNT 304 TH/MM3 (150-450); RED CELL DISTRIBUTION WIDTH 13.8 % (11.6-17.2)
[2017-06-10 08:45] LABS: BICARBONATE 29.2 MEQ/L (21.0-32.0); CREATININE 0.71 MG/DL (0.60-1.30)
--- NOTE | 2017-06-10 11:35 | HHI.PR ---
Subjective Subjective Notes Passed a relatively large liquid bowel movement last night. Has some mild nausea. He denies any emesis. He does not feel like he is quite ready for regular food. He would like to try full liquids. Objective Vitals/I&O Vital Signs Date Time Temp Pulse Resp B/P (MAP) Pulse Ox O2 Delivery O2 Flow Rate FiO2 06/10/17 08:00 96.2 87 18 126/74 (91) 94 06/09/17 08:23 Room Air Labs Laboratory Tests Test 06/10/17 07:18 White Blood Count 5.0 Red Blood Count 4.50 Hemoglobin 14.0 Hematocrit 40.8 Mean Corpuscular Volume 90.6 Mean Corpuscular Hemoglobin 31.0 Mean Corpuscular Hemoglobin Concent 34.2 Red Cell Distribution Width 13.8 Platelet Count 304 Mean Platelet Volume 7.1 Neutrophils (%) (Auto) 74.0 Lymphocytes (%) (Auto) 12.8 Monocytes (%) (Auto) 12.8 Eosinophils (%) (Auto) 0.2 Basophils (%) (Auto) 0.2 Neutrophils # (Auto) 3.7 Lymphocytes # (Auto) 0.6 Monocytes # (Auto) 0.6 Eosinophils # (Auto) 0.0 Basophils # (Auto) 0.0 CBC Comment DIFF FINAL Differential Comment Blood Urea Nitrogen 14 Creatinine 0.71 Random Glucose 108 Calcium Level 8.0 Sodium Level 136 Potassium Level 3.7 Chloride Level 100 Carbon Dioxide Level 29.2 Anion Gap 7 Estimat Glomerular Filtration Rate 116 Radiology Last 48 hours Impressions Chest X-Ray 06/09/17153 Signed Impressions: Service Date/Time: Friday, June 09, 2017 02:26 - CONCLUSION: Left basilar density likely related to atelectasis or scarring. Pavel Estevez MD Abdomen/Pelvis CT 06/09/17153 Signed Impressions: Service Date/Time: Friday, June 09, 2017 02:56 - CONCLUSION: Abnormal dilated small bowel present with decompressed small bowel seen distally and the findings are concerning for a small bowel obstruction. Pavel Estevez MD Abdomen: Other (Mildly distended nontender. Few bowel sounds.) Extremities: No edema (Mildly distended nontender to palpation few bowel sounds ) A/P Assessment and Plan Recent URI, dehydration, likely ileus. Doubt SBO. We will advance to full liquid diet. I impressed upon the patient the importance of walking in the halls. Will start Urecholine to try and stimulate gastric emptying. Potentially home in the next 24-[address] Galvin. Johnny Moncada MD Jun 10, 2017 11:35
[2017-06-10] MEDS: BETHANECHOL CHL 25 MG TAB PO SCH ×2 (12:00→17:19)
--- NOTE | 2017-06-10 14:55 | HHI.PR ---
Subjective Remarks 51-year-old male admitted for small bowel obstruction continues to improve with tolerance of liquid diet today. His mother brought in some psychiatric meds today that are not on her formulary. He is requesting permission to take those medications on his own. Objective Vitals Vital Signs Date Time Temp Pulse Resp B/P (MAP) Pulse Ox O2 Delivery O2 Flow Rate FiO2 06/10/17 12:00 96.9 80 18 155/79 (104) 94 06/10/17 08:00 96.2 87 18 126/74 (91) 94 06/10/17 04:00 99.6 105 20 136/72 (93) 92 06/10/17 01:47 71 06/10/17 00:00 98.4 118 20 124/75 (91) 93 06/09/17 20:00 98.5 67 18 130/66 (87) 94 06/09/17 16:00 97.4 86 18 125/63 (83) 96 I/O 06/09/17 06/09/17 06/09/17 06/10/17 06/10/17 06/10/17 07:00 15:00 23:00 07:00 15:00 23:00 Intake Total 1000 ml 0 ml 1540 ml Output Total 600 ml Balance 1000 ml 0 ml 1540 ml -600 ml Intake Oral 240 ml IV Total 1000 ml 0 ml 1300 ml Output Urine Total 600 ml # Voids 3 Result Diagram: 06/10/1718 06/10/1718 Objective Remarks GENERAL: obese, pleasant affect SKIN: Warm and dry. HEAD: Normocephalic. EYES: No scleral icterus. No injection or drainage. NECK: Supple, trachea midline. No JVD or lymphadenopathy. CARDIOVASCULAR: Regular rate and rhythm without murmurs, gallops, or rubs. RESPIRATORY: Breath sounds equal bilaterally. No accessory muscle use. GASTROINTESTINAL: Abdomen bloated, less tender to palpation today, bowel sounds approximately 50% active EXTREMITIES: No cyanosis, or edema. NEUROLOGICAL: Awake, alert, and oriented x 3. Non-focal. A/P Problem List: (1) Small bowel obstruction ICD Code: K56.609 - Unspecified intestinal obstruction, unspecified as to partial versus complete obstruction Assessment and Plan Small Bowel Obstruction Slowly improving tolerated liquid diet Continue to advance diet slowly Encouraged ambulation h/o Bipolar disorder / Anxiety (?) May take non-formulary psychiatric meds brought in by his mother h/o BPH Continue finasteride DVT Prophylaxis SCDs due to surgical risk Discharge planning We will follow diet tolerance, expect discharge to be in 24-48 hours Freddie Galvin MD Jun 10, 2017 14:55
[2017-06-10] MEDS: SODIUM CHLOR 0.9% 1000 ML INJ 1,000 ML IV SCH (19:45)
[2017-06-11] VITALS (10 sets, daily range): BP systolic 130–153; BP diastolic 72–87; PULSE 72–111; RESP 16–18; TEMP 96.1–98.1; O2SAT 92–96
[2017-06-11] MEDS: HYDROmorphone HCL PF 2 MG/ML VIAL IV PRN ×3 (00:01→08:05)
[2017-06-11] MEDS: SODIUM CHLOR 0.9% 1000 ML INJ 1,000 ML IV SCH ×2 (00:03→10:10)
[2017-06-11] MEDS: BETHANECHOL CHL 25 MG TAB PO SCH ×4 (04:27→17:58)
[2017-06-11] MEDS: SODIUM CHLORIDE 0.9% FLUSH 10 ML FLUSH IV FLUSH SCH ×2 (08:06→19:29)
[2017-06-11] MEDS: clonazePAM 0.5 MG TAB PO SCH ×2 (08:07→19:28)
[2017-06-11] MEDS: FINASTERIDE 5 MG TAB PO SCH (08:07)
[2017-06-11] MEDS: PRAVASTATIN SOD 80 MG TAB PO SCH (08:07)
[2017-06-11] MEDS ORDERED: ACETAMINOPHEN/HYDROcodone 325 MG/5 MG TAB PO PRN (11:00)
--- NOTE | 2017-06-11 11:47 | HHI.PR ---
cc: Carlos Conteh MD Subjective Subjective Notes Resting in bed Tolerating full liquids Objective Vitals/I&O Vital Signs Date Time Temp Pulse Resp B/P (MAP) Pulse Ox O2 Delivery O2 Flow Rate FiO2 06/11/17 08:35 18 06/11/17 08:10 96 Nasal Cannula 3.00 06/11/17 08:00 98.1 81 143/74 (97) Radiology Last 48 hours Impressions Chest X-Ray 06/09/17153 Signed Impressions: Service Date/Time: Friday, June 09, 2017 02:26 - CONCLUSION: Left basilar density likely related to atelectasis or scarring. Pavel Estevez MD Abdomen/Pelvis CT 06/09/17153 Signed Impressions: Service Date/Time: Friday, June 09, 2017 02:56 - CONCLUSION: Abnormal dilated small bowel present with decompressed small bowel seen distally and the findings are concerning for a small bowel obstruction. Pavel Estevez MD Cardiovascular: Regular Lungs: Clear Abdomen: Non-distended, Non-tender, Other (obese abdomen soft ) Extremities: No edema A/P Assessment and Plan 51 year old male with abdominal pain; recent URI; likely ileus -Regular diet -DC IVF -+BM -Added PO pain pills -If tolerates regular diet okay to DC -No office follow up needed Alessandra Potts/[employer] ARNP Jun 11, 2017 11:47
[2017-06-11] MEDS: ACETAMINOPHEN/HYDROcodone 325 MG/5 MG TAB PO PRN ×3 (12:18→21:09)
--- NOTE | 2017-06-11 16:27 | HHI.PR ---
Subjective Remarks Patient presented 2 days ago with small bowel obstruction. He has recovered with time. Today he still claims that he has pain and has been reluctant to tolerate full p.o. Objective Vitals Vital Signs Date Time Temp Pulse Resp B/P (MAP) Pulse Ox O2 Delivery O2 Flow Rate FiO2 06/11/17 13:18 18 06/11/17 12:00 92 06/11/17 12:00 96.9 78 16 134/72 (92) 94 06/11/17 08:35 18 06/11/17 08:10 96 Nasal Cannula 3.00 06/11/17 08:00 88 06/11/17 08:00 98.1 81 16 143/74 (97) 96 06/11/17 04:26 97.8 84 18 151/75 (100) 92 06/11/17 04:16 83 06/11/17 00:21 78 06/11/17 00:00 96.5 91 18 153/87 (109) 93 06/10/17 20:18 81 06/10/17 20:00 97.3 81 18 130/67 (88) 97 06/10/17 19:39 Nasal Cannula 3.00 I/O 06/10/17 06/10/17 06/10/17 06/11/17 06/11/17 06/11/17 06:59 14:59 22:59 06:59 14:59 22:59 Intake Total 2240 ml 704 ml Output Total 600 ml 800 ml Balance -600 ml 2240 ml -96 ml Intake Oral 840 ml IV Total 1400 ml 704 ml Output Urine Total 600 ml 800 ml # Voids 5 # Bowel Movements 1 Result Diagram: 06/10/17 0718 06/10/17 0718 Objective Remarks GENERAL: obese, pleasant affect SKIN: Warm and dry. HEAD: Normocephalic. EYES: No scleral icterus. No injection or drainage. NECK: Supple, trachea midline. No JVD or lymphadenopathy. CARDIOVASCULAR: Regular rate and rhythm without murmurs, gallops, or rubs. RESPIRATORY: Breath sounds equal bilaterally. No accessory muscle use. GASTROINTESTINAL: Abdomen bloated, less tender to palpation today, bowel sounds approximately 80% active EXTREMITIES: No cyanosis, or edema. NEUROLOGICAL: Awake, alert, and oriented x 3. Non-focal. A/P Problem List: (1) Small bowel obstruction ICD Code: K56.609 - Unspecified intestinal obstruction, unspecified as to partial versus complete obstruction Assessment and Plan Small Bowel Obstruction Slowly improving tolerated soft foods Continue to advance diet slowly as tolerated Patient was reluctant to ambulate today h/o Bipolar disorder / Anxiety (?) May take non-formulary psychiatric meds brought in by his mother h/o BPH Continue finasteride DVT Prophylaxis SCDs due to surgical risk Discharge planning Patient will likely discharge tomorrow, he does not feel quite ready today. Freddie Galvin MD Jun 11, 2017 16:27
[2017-06-12] VITALS: BP 132/78; PULSE 108; RESP 18; TEMP 98.9; O2SAT 93
[2017-06-12] MEDS: BETHANECHOL CHL 25 MG TAB PO SCH ×3 (00:31→12:00)
[2017-06-12] MEDS: ACETAMINOPHEN/HYDROcodone 325 MG/5 MG TAB PO PRN ×3 (00:32→08:18)
[2017-06-12 04:00] VITALS: BP 133/72; PULSE 98; RESP 18; TEMP 98.6; O2SAT 94
[2017-06-12 08:00] VITALS: BP 117/73; PULSE 93; RESP 18; TEMP 98; O2SAT 93
[2017-06-12] MEDS: clonazePAM 0.5 MG TAB PO SCH (08:17)
[2017-06-12] MEDS: PRAVASTATIN SOD 80 MG TAB PO SCH (08:18)
[2017-06-12] MEDS: FINASTERIDE 5 MG TAB PO SCH (08:18)
[2017-06-12] MEDS: SODIUM CHLORIDE 0.9% FLUSH 10 ML FLUSH IV FLUSH SCH (08:19)
--- NOTE | 2017-06-12 10:33 | HHI.PR ---
Subjective Subjective Notes doing well, tolerating diet, pain better, +flatus and bm Objective Vitals/I&O Vital Signs Date Time Temp Pulse Resp B/P (MAP) Pulse Ox O2 Delivery O2 Flow Rate FiO2 06/12/17 08:00 98.0 93 18 117/73 (88) 93 06/11/17 08:10 Nasal Cannula 3.00 Radiology Last 48 hours Impressions Chest X-Ray 06/09/17153 Signed Impressions: Service Date/Time: Friday, June 09, 2017 02:26 - CONCLUSION: Left basilar density likely related to atelectasis or scarring. Pavel Estevez MD Abdomen/Pelvis CT 06/09/17153 Signed Impressions: Service Date/Time: Friday, June 09, 2017 02:56 - CONCLUSION: Abnormal dilated small bowel present with decompressed small bowel seen distally and the findings are concerning for a small bowel obstruction. Pavel Estevez MD Cardiovascular: Regular Lungs: Clear Abdomen: Other (soft mild ttp, nd) A/P Assessment and Plan SBO vs ileus resolved + bms PLAN reg diet d/c planning today ok from surgery stand point Mo Ellis MD Jun 12, 2017 10:33
--- NOTE | 2017-06-12 10:55 | HHI.PR ---
Subjective Remarks Patient seen and examined. AFVSS. No acute events overnight. Patient reports he is doing well. Just had a large, nonbloody BM. Denies abdominal pain, nausea, or vomiting. Tolerating PO and ambulating. Excited to go home. Objective Vitals Vital Signs Date Time Temp Pulse Resp B/P (MAP) Pulse Ox O2 Delivery O2 Flow Rate FiO2 06/12/17 08:00 98.0 93 18 117/73 (88) 93 06/12/17 04:00 98.6 98 18 133/72 (92) 94 06/12/17 00:00 98.9 108 18 132/78 (96) 93 06/11/17 23:45 93 06/11/17 20:00 96.1 111 18 130/72 (91) 95 06/11/17 19:59 72 06/11/17 17:59 17 06/11/17 16:00 96.5 81 17 133/76 (95) 93 06/11/17 12:00 92 06/11/17 12:00 96.9 78 16 134/72 (92) 94 I/O 06/11/17 06/11/17 06/11/17 06/12/17 06/12/17 06/12/17 07:00 15:00 23:00 07:00 15:00 23:00 Intake Total 704 ml 720 ml 240 ml Output Total 800 ml 800 ml Balance -96 ml -80 ml 240 ml Intake Oral 720 ml 240 ml IV Total 704 ml Output Urine Total 800 ml 800 ml # Voids 5 # Bowel Movements 0 1 Result Diagram: 06/10/1771706/10/17717 Imaging Chest X-Ray 06/09/17153 Signed Impressions: Service Date/Time: Friday, June 09, 2017 02:26 - CONCLUSION: Left basilar density likely related to atelectasis or scarring. Pavel Estevez MD Abdomen/Pelvis CT 06/09/17153 Signed Impressions: Service Date/Time: Friday, June 09, 2017 02:56 - CONCLUSION: Abnormal dilated small bowel present with decompressed small bowel seen distally and the findings are concerning for a small bowel obstruction. Pavel Estevez MD Objective Remarks GENERAL: WN, WD obese male sitting on side of bed in NAD. SKIN: Warm and dry. HEENT: Pupils equal and round. MMM. NECK: Supple no tender LAD or JVD. HEART: RRR no m/r/g. LUNGS: CTAB without wheezes or crackles. ABDOMEN: Soft, NT, ND. No guarding or rebound. +BS. EXTREMITIES: No LE edema or calf tenderness. NEURO: Awake and alert. Nonfocal. PSYCH: Appropriate mood and affect. A/P Problem List: (1) Small bowel obstruction ICD Code: K56.609 - Unspecified intestinal obstruction, unspecified as to partial versus complete obstruction Status: Resolved Assessment and Plan Abdominal pain Resolved - SBO vs. ileus Tolerating PO and had a BM Cleared per surgery Continue regular diet as tolerated Resume home medications on discharge for chronic medical conditions: anxiety, BPH, HLD, GERD Discharge Planning D/C home today Lori Chapman MD Jun 12, 2017 10:55
--- NOTE | 2017-06-12 12:05 | HHI.DCPOC ---
Discharge Care Plan Diagnosis: (1) Small bowel obstruction (2) Ileus Goals to Promote Your Health * To prevent worsening of your condition and complications * To maintain your health at the optimal level Directions to Meet Your Goals Take your medications as prescribed Follow your dietary instruction Follow activity as directed Keep your appointments as scheduled Take your immunizations and boosters as scheduled If your symptoms worsen call your PCP, if no PCP go to Urgent Care Center or Emergency Room Smoking is Dangerous to Your Health. Avoid second hand smoke Call the 24-hour hour crisis hotline for domestic abuse at Lori Chapman MD Jun 12, 2017 12:05
--- NOTE | 2017-06-13 20:28 | HHI.DS ---
Discharge Summary Admission Date Jun 09, 2017 at 03:46 Discharge Date: Jun 12, 2017 Admitting Diagnosis Small bowel obstruction (1) Small bowel obstruction ICD Code: K56.609 - Unspecified intestinal obstruction, unspecified as to partial versus complete obstruction Status: Resolved Procedures None Brief History - From Admission Written by CICI Fox acting as scribe for [Sara] on 06/09/17 at 04: 48. 51 y/o male with a history of SBO, sleep apnea, bph, and hld presented to the ED with complaints of abdominal pain, nausea and vomiting. He states he has been feeling sick the past 2 days with abdominal pain, nausea and vomiting. His last BM was 3 days ago, today he took lactulose with no relief. He is refusing an NGT at this time. He denies any chest pain, sob, fever or chills. CBC/BMP: 06/10/17 0718 06/10/17 0718 Imaging Last Impressions Chest X-Ray 06/09/17153 Signed Impressions: Service Date/Time: Friday, June 09, 2017 02:26 - CONCLUSION: Left basilar density likely related to atelectasis or scarring. Pavel Estevez MD Abdomen/Pelvis CT 06/09/17153 Signed Impressions: Service Date/Time: Friday, June 09, 2017 02:56 - CONCLUSION: Abnormal dilated small bowel present with decompressed small bowel seen distally and the findings are concerning for a small bowel obstruction. Pavel Estevez MD PE at Discharge GENERAL: WN, WD obese male sitting on side of bed in NAD. SKIN: Warm and dry. HEENT: Pupils equal and round. MMM. NECK: Supple no tender LAD or JVD. HEART: RRR no m/r/g. LUNGS: CTAB without wheezes or crackles. ABDOMEN: Soft, NT, ND. No guarding or rebound. +BS. EXTREMITIES: No LE edema or calf tenderness. NEURO: Awake and alert. Nonfocal. PSYCH: Appropriate mood and affect. Hospital Course 51 YOWM admitted on 06/09/17 for abdominal pain and was admitted for suspicion of small bowel obstruction. General surgery was consulted and it was suspected that the patient developed an ileus secondary to recent URI and dehydration. The patient improved clinically with ambulation, pain control, and diet progression and was discharged in stable condition on 06/12/17. Pt Condition on Discharge: Good Discharge Disposition: Discharge Home Discharge Time: <= 30 minutes Discharge Instructions DIET: Follow Instructions for: As Tolerated, No Restrictions Activities you can perform: Regular-No Restrictions Follow up Referrals: PCP Follow-up - 2 Weeks Continued Medications: Alfuzosin Hcl (Alfuzosin Hcl Er) 10 Mg Tab 10 MG PO DAILY, TAB Clonazepam (Clonazepam) 0.5 Mg Tab 0.5 MG PO BID, #60 TAB 0 Refills Finasteride (Proscar) 5 Mg Tab 5 MG PO DAILY for Manage Prostate Problems, #30 TAB 0 Refills Do not crush. Flaxseed (Linseed) (Sm Flax Seed Oil) 1,000 Mg Cap 1200 MG PO DAILY, CAP Hydrocodone-Acetaminophen 5-325 mg ([place] 5-325 mg) 1 Tab 1 TAB PO Q6H PRN for pain, #20 TAB 0 Refills Multiple Vitamin (Multivitamin) 1 Tab Tab 1 TAB PO DAILY, TAB Olmesartan Medoxomil-Amlodipin (Tribenzor) 1 Tab Tab 40 MG PO DAILY Pantoprazole Sodium (Protonix) 40 Mg Tab 40 MG PO DAILY, TAB Paroxetine Hcl (Paxil) 20 Mg Tab 20 MG PO DAILY, TAB Pravastatin (Pravastatin) 80 Mg Tab 80 MG PO DAILY for Cholesterol Management, #30 TAB 0 Refills Probiotic Product (Probiotic Acidophilus) 12.9 Mg (2 Billion Cell) Cap 1 TAB PO BID, CAP Saccharomyces Boulardii (Probiotic) 250 Mg Cap 250 MG PO BID for Nutritional Supplement, CAP 0 Refills [Bp Med] () PO DAILY Discontinued Medications: Clonazepam (Clonazepam) 0.5 Mg Tab 0.5 MG PO BID PRN for MILD ANXIETY, TAB Dicyclomine Hcl (Bentyl) 20 Mg Tab 20 MG PO TID for stomach for 14 Days, TAB 0 Refills Finasteride (Proscar) 5 Mg Tab 5 MG PO DAILY, TAB Pravastatin Sod (Pravastatin Sodium) 80 Mg Tab 1 TAB PO DAILY, TAB Lori Chapman MD Jun 13, 2017 20:28
== END 2017-06-12 12:22 | disposition home or self-care (01) | DRG 390 ==
LOC: NEPE 01:24 → NEDA 03:46 → NEDH 10:22 → N07B 12:29
PROVIDERS: ADMIT Family Medicine; ATTEND Family Medicine
PROC: 3E0F7GC Introduction of Other Therapeutic Substance into Respiratory Tract, Via Natural or Artificial Opening (ICD-10-PCS; principal; 2017-06-09)
DX: K56.7 Ileus, unspecified (principal); Z99.81 Dependence on supplemental oxygen; I10 Essential (primary) hypertension; E78.5 Hyperlipidemia, unspecified; N40.1 Benign prostatic hyperplasia with lower urinary tract symptoms; G47.33 Obstructive sleep apnea (adult) (pediatric); F43.10 Post-traumatic stress disorder, unspecified; K21.9 Gastro-esophageal reflux disease without esophagitis; I45.10 Unspecified right bundle-branch block; F31.9 Bipolar disorder, unspecified; E86.0 Dehydration
CPT/HCPCS: 71045; 74177; 80048; 80053; 81001; 82550; 83690; 83735; 83880; 84484; 85025; 85610; 85730; 86140; 93005; 96361; 96374; 96375; J1170; J2405; J7030; Q9967